=== PATIENT | male | born 1990 | race Caucasian/White ===

== ENCOUNTER 2023-04-28 08:42 | Emergency (ER) | payer MEDICAID, SELFPAY ==
[2023-04-28 09:28] VITALS: BP 149/97; PULSE 79; RESP 20; TEMP 37.1; O2SAT 98; BMI 59.1
--- NOTE | 2023-04-28 12:52 | ED_ITS ---
HPI - Dental/Oral General Chief complaint: Dental/Oral Stated complaint: Dental infection/Vomiting Time Seen by Provider: 04/28/23 12:37 Source: patient Limitations: no limitations History of Present Illness HPI Narrative: For 32 years old with past medical history of prediabetes, presents emergency room for due to pain. The patient reports that he broke his tooth on Thursday and has been experiencing pain since. Today however he also reports some nausea vomiting and therefore presented to the emergency room to be evaluated. Patient reports that he has a follow-up with his dentist in a few weeks. Patient reports the pain is 4/10 in severity. Has been using weed to alleviate the pain. He denies chills or fever. Patient denies tongue swelling,, lip swelling. No neck pain, no dysphagia or odynophagia. Patient denies shortness of breath, chest pain, abdominal pain. Not in distress MD Complaint: tooth pain Related Data Previous Rx's Medication Instructions Recorded cefuroxime axetil 500 mg tablet 500 mg PO BID tooth infection #10 04/28/23 tabs ondansetron 4 mg oral soluble film 4 mg PO Q8H PRN nausea and 04/28/23 vomiting #20 ea Allergies Allergy/AdvReac Type Severity Reaction Status Date / Time Penicillins Allergy Nausea and Verified 04/28/23 09:28 Vomiting red dye Allergy Anaphylaxis Verified 04/28/23 09:28 shellfish derived Allergy Anaphylaxis Verified 04/28/23 09:28 Review of Systems 2 Review of Systems: Yes all other systems are reviewed and are negative PMFSH Social History Social History Advance Directives: No Advance Directives Information Provided: No Physical Exam 2 Vital Signs: Vital Signs: Last Vital Signs Temp 98.7 F 04/28/23 09:28 Pulse 79 04/28/23 09:28 Resp 20 04/28/23 09:28 BP 149/97 H 04/28/23 09:28 Pulse Ox 98 04/28/23 09:28 O2 Del Method Room Air 04/28/23 09:28 BMI result Body Mass Index 59.1 Const: General: alert Orientation/consciousness: patient oriented x3 HEENT: Other: No sublingual swelling, no cervical lymph nodes swelling. No gum swelling, erhytema or fluctuance Head: Yes normal to inspection and Yes normocephalic Mouth: Normal oral and palatal mucosa present, oropharynx normal and no audible dysphonia Teeth image: 1. 13th tooth is partially broken Grimes class 2/3 Chest: Chest palpation & inspection: normal inspection of the chest Resp: Effort & Inspection: normal respiratory effort and able to speak in complete sentences Cardio: Rate: regular rate Rhythm: regular rhythm Heart sounds: S1 normal heart sound present and S2 normal heart sound present GI: Inspection: Yes normal to inspection Palpation (GI): Soft to palpation Neuro: General: patient oriented x3 Course Reevaluation(s) Reevaluation #1: Patient received medication. No reaction. Medically stable. Will DC home. Time: 13:19 Medications Administered Discontinued Medications Generic Name Dose Route Start Last Admin Trade Name Freq PRN Reason Stop Dose Admin Cefuroxime Axetil 500 mg 04/28/23 12:50 04/28/23 13:10 Cefuroxime Axetil 500 Mg Tablet PO 04/28/23 12:51 500 mg ONCE ONE Administration Ibuprofen 600 mg 04/28/23 12:47 04/28/23 13:10 Ibuprofen 600 Mg Tablet PO 04/28/23 12:48 600 mg ONCE ONE Administration Medical Decision Making Medical Decision Making [facility] Narrative: l exam patient does not have any signs of airway obstruction, there is no signs of cellulitis or abscess. Next item sublingual and submental spaces are clear and at this time there is no signs of Loco's angina or suspicion for retropharyngeal of infectious process. Given the fact that the patient is prediabetic and that he will not be able to follow-up with his dentist for at least 2 weeks, will start the patient on cefuroxime. Patient reported a remote allergy to penicillin (nausea and vomiting). I discussed the possibility of trying Augmentin in the emergency room and being monitored however patient would prefer and other medication. Cephalosporin of about 5% cross-reactivity . Will give 1st dose in the emergency room and if no reaction will DC home. Differential Diagnosis Broken tooth, gingival abscess. Admission/Observation Consideration of admission/observation: Escalation of care including admission/observation considered Discharge Plan Discharge Clinical Impression: Fracture of tooth Patient Disposition: Home, Self-Care Instructions: Toothache (ED) Additional Instructions: You were seen in the emergency room for a toothache, nausea and vomiting. Your physical exam is reassuring at this time there is no signs of infection however given the fact that a broken tooth may lead to infection was started on a 5 day course of antibiotic called cefuroxime 500 mg Please take this medication twice a day for the next 5 days For nausea you can use Zofran 4 mg up to 3 times a day Presented emergency room if you will notice any chills, fever, neck pain or difficulty swallowing. Follow-up with your dentist as scheduled. Prescriptions: New cefuroxime axetil 500 mg tablet 500 mg PO BID Qty: 10 0RF ondansetron 4 mg film 4 mg PO Q8H PRN (Reason: nausea and vomiting) Qty: 20 0RF
[2023-04-28] MEDS: cefuroxime axetiL 500 MG TABLET PO (13:10)
[2023-04-28] MEDS: Ibuprofen 600 MG TABLET PO (13:10)
== END 2023-04-28 13:44 | disposition home or self-care (01) ==
PROVIDERS: Emergency Provider Student in an Organized Health Care Education/Training Program
DX: K08.539 Fractured dental restorative material, unspecified (principal); K08.89 Other specified disorders of teeth and supporting structures; F12.90 Cannabis use, unspecified, uncomplicated
CPT/HCPCS: 99283